=== PATIENT | female | born 2000 | race Caucasian/White ===

== ENCOUNTER 2021-08-12 16:16 | Emergency (ER) | payer OTHER ==
[~2021-08-12] VITALS: Ht 162.6 cm; Wt 71.2 kg
[2021-08-12 16:20] VITALS: BP_SYST 107
[2021-08-12 18:02] LABS: HEMATOCRIT 38.3 % (36-48); HEMOGLOBIN 12.7 g/dL (12.0-16.0); MEAN CORPUSCULAR HEMOGLOBIN 28 pg (27-31); MEAN CORPUSCULAR HGB CONC 33 % (32-36); MEAN CORPUSCULAR VOLUME 85 fL (79.0-98.0); PLATELET COUNT (AUTO) 246 K/uL (130-430); RED BLOOD CELL COUNT(AUTO) 4.52 MIL/uL (4.2-6.2); RED CELL DISTRIBUTION WIDTH 13.1 % (9.0-15.0); WHITE BLOOD COUNT (AUTO) 4.2 K/uL (4.8-10.8)
[2021-08-12 18:10] LABS: ANION GAP 9 (5-15); CALCIUM 8.7 mg/dL (8.4-11.0); CHLORIDE 106 mmol/L (98-107); CREATININE 0.78 mg/dL (0.55-1.30); GLUCOSE 96 mg/dL (70-99); POTASSIUM 3.8 mmol/L (3.5-5.1); SODIUM SERUM 140 mmol/L (136-145); UREA NITROGEN, BLOOD 16 mg/dL (8-21)
[2021-08-12 18:17] LABS: GFR AFRICAN AMERICAN 120 mL/min (>90)
[2021-08-12 18:19] LABS: ALANINE AMINOTRANSFERASE 14 U/L (12-78); ALBUMIN 3.8 g/dL (3.4-4.8); ASPARTATE AMINOTRANSFERASE 13 U/L (10-37); TOTAL BILIRUBIN 0.2 mg/dL (0.0-1.0)
[2021-08-12] MEDS ORDERED: IBUP-1969 PO (18:55)
[2021-08-12 21:48] LABS: BAND % (MANUAL) 2 % (0-6); BASOPHILS % (MANUAL) 0 % (0-2); EOSINOPHILS % (MANUAL) 0 % (0-7); LYMPHOCYTES % (MANUAL) 70 % (20-46); MONOCYTES % (MANUAL) 4 % (0-11)
== END 2021-08-12 19:04 | disposition home or self-care (01) ==
LOC: SED 16:16
DX: R07.2 Precordial pain (principal)
CPT/HCPCS: 36415; 71045; 80053; 84484; 85007; 85027; 85379; 93005; 99285